=== PATIENT | female | born 1975 | race African-American/Black ===

== ENCOUNTER 2018-08-11 09:34 | Emergency (ER) | payer MEDICAID, OTHER ==
[2018-08-11 13:51] VITALS: BP 121/82
[2018-08-11] MEDS ORDERED: NAPROXEN 250 MG TABLET PO STA (14:18)
[2018-08-11] MEDS ORDERED: ACETAMINOPHEN 500 MG TABLET PO STA (14:18)
--- NOTE | 2018-08-11 14:44 | ED Physician Documentation ---
History of Present Illness - Stated complaint Stated Complaint: FEVER/DIZZY/MCNAMARA - Chief complaint Chief Complaint: Fever - Additonal information Additional information: 43-year-old female presents the emergency department with several days of fever, body aches, chills, general weakness, feeling lightheaded and generally unwell. The patient is also had sore throat and cough. Today no attempts at symptom management. The patient took Tylenol yesterday. No, other associated symptoms. Symptoms are described as moderate Review of Systems Constitutional: reports: Fever, Chills, Fatigue Eyes: denies: Discharge Ears: denies: Ear pain Nose: reports: Rhinorrhea / runny nose, Congestion Throat: reports: Sore throat Cardiac: denies: Chest pain / pressure Respiratory: reports: Cough GI: denies: Abdominal Pain : denies: Dysuria Skin: denies: Rash Musculoskeletal: denies: Neck pain Neurologic: reports: Generalized weakness. denies: Focal weakness, Numbness, Difficulty speaking, Near syncope PD PAST MEDICAL HISTORY - Allergies Allergies/Adverse Reactions: Allergies Allergy/AdvReac Type Severity Reaction Status Date / Time No Known Drug Allergies Allergy Verified 08/11/18 10:09 PD ED PE NORMAL - General General: Alert and oriented X 3, No acute distress - HEENT HEENT: Atraumatic, PERRL, EOMI, Ears normal - Neck Neck: Supple, no meningeal sign - Cardiac Cardiac: RRR, Strong equal pulses - Respiratory Respiratory: No respiratory distress - Derm Derm: Normal color - Extremities Extremities: No deformity, Normal ROM s pain - Neuro Neuro: Alert and oriented X 3, 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 The patient is positive for influenza it appears appropriate for outpatient management. I discussed the natural course of influenza with the patient. I discussed warning signs and recommended returning to the emergency department for any worsening or any concerns Departure - Departure Disposition: 01 Home, Self Care Clinical Impression: Influenza Condition: Good Instructions: ED Fever Control Ch, ED Flu Follow-Up: Samantha Ramos PA-C [Primary Care Provider] - Within 1 week Comments: Please take Tylenol as needed for fever and body aches every 6 hours Please take Motrin as needed for fever and body aches every 6 hours. Please drink plenty of fluids Please return to the emergency department for any worsening or any concerns
== END 2018-08-11 14:56 | disposition home or self-care (01) ==
LOC: ED 09:34
DX: J11.1 Influenza due to unidentified influenza virus with other respiratory manifestations (principal)
CPT/HCPCS: 87275; 87276; 99282; 99283; A9270